=== PATIENT | male | born 1980 | race African-American/Black ===

== ENCOUNTER 2020-11-06 21:13 | Emergency (ER) | payer SELFPAY ==
[~2020-11-06] VITALS: Ht 175 cm; Wt 86.0 kg
[~2020-11-06 21:13] MED LIST: ANTIBOTIC
[2020-11-06] MEDS ORDERED: TETANUS,DIPTH,PERTUSS P/F (BOOSTRIX) 0.5 ML VIAL IM ONE (21:30)
--- NOTE | 2020-11-06 21:31 | ED Upper Extremity ---
General Chief Complaint: Laceration Stated Complaint: L HAND 2ND FINGER LACERATION History of Present Illness Date Seen by Provider: Nov 06, 2020 Time Seen by Provider: 21:15 Initial Comments 40-year-old -[place] male attempted to grab a knife and grabbed a sharp and instead of the handle causing a laceration to his left second finger. He is unsure of the last time he received a tetanus vaccine. He denies any other complaints of injuries. Onset: just prior to arrival Pain/Injury Location: left 2nd finger Method of Injury: incised Allergies and Home Medications Allergies Coded Allergies: NKANo Known Allergies (Unverified Allergy, Mild, 11/23/09) Home Medications Cephalexin 500 Mg Tablet, 500 MG PO TID Prescribed by: GENNARO VILLALOBOS on 11/06/202228 Patient Home Medication List Home Medication List Reviewed: Yes Review of Systems Constitutional: no symptoms reported, see HPI Skin: see HPI, other (Laceration left second finger.) All Other Systems Reviewed Negative Unless Noted: Yes Past Gpzkjyd-Ypiabf-Naizxm Hx Past Med/Social Hx: Reviewed Nursing Past Med/Soc Hx Past Medical History Reproductive Disorders: No Physical Exam Vital Signs Vital Signs - First Documented 11/06/20 21:35 Temp 36.0 Pulse 96 Resp 16 B/P (MAP) 158/117 (131) O2 Delivery Room Air Capillary Refill : Height, Weight, BMI Height: '" Weight: lbs. oz. kg; BMI Method: General Appearance: WD/WN, no apparent distress Cardiovascular: normal peripheral pulses, regular rate, rhythm Respiratory: chest non-tender, lungs clear, normal breath sounds Hand: normal ROM, Left, laceration (Left second finger), soft tissue tenderness Neurologic/Psychiatric: no motor/sensory deficits, alert, normal mood/affect, oriented x 3 Skin: normal color, warm/dry Procedures/Interventions Wound Location: Upper Extremities (Left second finger) Wound's Depth, Shape: into muscle Wound Explored: clean Irrigated w/ Saline (ccs): 500 Betadine Prep?: Yes Anesthesia: 1% Lidocaine Volume Anesthetic (ccs): 6 Suture: Ethlion Suture Size: 5-0 Number of Sutures: 4 Sterile Dressing Applied?: Yes (.) Progress . Wound cleaned with sterile saline and Betadine to the skin. Lidocaine 6 mL is used for local anesthetic. To areas of bleeding were addressed first with a silver nitrate stick without control then with electrocautery. Wound was well approximated with 4 simple sutures. No further bleeding was noted. The patient was monitored for approximately 15 minutes to assure no further bleeding would occur. Dressing had a trace amount of blood. New sterile dressing was applied. The patient tolerated procedure well. Progress/Results/Core Measures Results/Orders My Orders Orders - GENNARO VILLALOBOS Dipht,Pertuss(Acell),Tet Adult (Boostrix (11/06/20 21:30) Cephalexin Capsule (Keflex Capsule) (11/06/20 22:30) Cephalexin Capsule (Keflex Capsule) (11/06/20 22:33) Medications Given in ED Current Medications Medications Dose Ordered Sig/Ana Route Start Time Stop Time Status Last Admin Dose Admin Cephalexin HCl 500 mg ONCE ONCE PO 11/06/20 22:30 11/06/20 22:41 DC 11/06/20 22:39 500 MG Diphtheria/ Tetanus/Acell Pertussis 0.5 ml ONCE ONCE IM 11/06/20 21:30 11/06/20 21:31 DC 11/06/20 21:33 0.5 ML Vital Signs/I&O 11/06/20 21:35 Temp 36.0 Pulse 96 Resp 16 B/P (MAP) 158/117 (131) O2 Delivery Room Air Departure Impression Primary Impression: Laceration of left index finger Qualified Codes: S61.211A - Laceration without foreign body of left index finger without damage to nail, initial encounter Disposition: 01 HOME, SELF-CARE Condition: Improved Departure-Patient Inst. Decision time for Depature: 22:10 Referrals: CATHY AGUAYO MD (PCP) Primary Care Physician [facility] [place] Instructions: Laceration Repair With Stitches (DC) Add. Discharge Instructions: Clean and dry for the next 24 hours, then you may shower and clean it with peroxide after. Keep covered with a Band-Aid or dressing when away from home. You may leave it open to air while at home. Take antibiotics as prescribed. You may alternate between Tylenol 650 mg and ibuprofen 600 mg every 4 hours for pain. Watch for signs of infection: Redness, warmth, discolored drainage, or foul- smelling drainage. Return to the emergency department or your primary care provider in 10 to 14 days for suture removal. If the wound begins to bleed apply a compressive type dressing, use an ice pack and elevate it higher than your heart. If it continues bleeding be on 10 to 15 minutes return to the emergency department. Return to the emergency department for any new, urgent healthcare needs. All discharge instructions reviewed with patient and/or family. Voiced understanding. Scripts Cephalexin (Cephalexin) 500 Mg Tablet 500 MG PO TID, #15 TAB 0 Refills Prov: GENNARO VILLALOBOS 11/06/20 GENNARO VILLALOBOS Nov 06, 2020 21:31
[2020-11-06] MEDS ORDERED: CEPH500T PO (22:29)
[2020-11-06] MEDS ORDERED: CEPHALEXIN 250 MG (KEFLEX) CAP PO ONE ×2 (22:30→22:33)
[2020-11-06 22:43] VITALS: BP 149/98
== END 2020-11-06 22:43 | disposition home or self-care (01) ==
LOC: EDUNIT# 21:13 → ER 21:15
DX: S61.211A Laceration without foreign body of left index finger without damage to nail, initial encounter (principal); Z23 Encounter for immunization; W26.0XXA Contact with knife, initial encounter
CPT/HCPCS: 12001; 90715

== ENCOUNTER 2021-10-01 11:28 | Emergency (ER) | payer SELFPAY ==
[~2021-10-01] VITALS: Ht 175.2 cm; Wt 90.9 kg
[~2021-10-01 11:28] MED LIST changes: +CEPH500T PO
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
[2021-10-01] MEDS ORDERED: KETOROLAC 60 MG/2 ML VIAL IM ONE (14:00)
[2021-10-01] MEDS ORDERED: ORPHENADRINE 60 MG/2 ML (NORFLEX) AMP (ED ONLY) IM ONE (14:00)
--- NOTE | 2021-10-01 14:09 | Diagnostic Imaging Report ---
PROCEDURE: CT lumbar spine without contrast. TECHNIQUE: Multiple contiguous axial images were obtained through the lumbar spine without the use of intravenous contrast. Sagittal and coronal reformations were then performed. Auto Exposure Controls were utilized during the CT exam to meet ALARA standards for radiation dose reduction. INDICATION: Back pain. Fall. COMPARISON: None. FINDINGS: Normal alignment. Vertebral body heights are preserved. No fractures. Visualized pelvis is intact. No substantial degenerative endplate changes. [id number] facet arthropathy bilaterally at L5-S1. No high-grade spinal canal stenosis is evident on soft tissue windows. There is at least moderate bilateral neural foraminal narrowing at L5-S1 and on the left at L4-L5. Visualized paravertebral soft tissues are unremarkable. IMPRESSION: 1. No acute CT findings in the lumbar spine. 2. Spondylotic changes likely result in moderate bilateral neural foraminal narrowing at L5-S1 and on the left at L4-L5. No high-grade spinal canal stenosis is evident by noncontrast CT. Dictated by: Dictated on workstation # [id number]
[2021-10-01] MEDS ORDERED: ACHD5005 PO (14:29)
[2021-10-01] MEDS ORDERED: METH4TAB11 PO (14:29)
[2021-10-01] MEDS ORDERED: NAPR500T8 PO (14:29)
[2021-10-01 14:32] VITALS: BP 165/115
== END 2021-10-01 14:32 | disposition home or self-care (01) ==
LOC: EDUNIT# 11:28 → ER 11:30
DX: M54.50 Low back pain, unspecified (principal)
CPT/HCPCS: 72131

== ENCOUNTER 2021-10-22 11:37 | Emergency (ER) | payer SELFPAY ==
[~2021-10-22] VITALS: Ht 177.8 cm; Wt 90.7 kg
[~2021-10-22 11:37] MED LIST changes: +ACHD5005 PO; +METH4TAB11 PO; +NAPR500T8 PO
[2021-10-22] MEDS ORDERED: cefTRIAXone 1 GM PRE-MIX 50 ML IV ONE (12:00)
[2021-10-22] MEDS ORDERED: KETOROLAC 30 MG/ML VIAL IVP ONE (12:00)
--- NOTE | 2021-10-22 12:02 | ED General ---
General Stated Complaint: THROAT SWELLING - COUGH - CHILLS - CONGESTION Source of Information: Patient Exam Limitations: No Limitations (TOÑO CABRERA APRN) History of Present Illness Date Seen by Provider: Oct 22, 2021 Time Seen by Provider: 12:00 Initial Comments ER with a 1 week history of swelling to his throat. Started the left side of hi s throat and now is the right side of his throat. He states that he has had some chills. He has a cough only in an attempt to clear the sensation out of his throat. He has difficulty opening his mouth because of pain and difficulty chewing because of pain. Seems to be underneath the right side of his tongue. Swallowing is painful. Timing/Duration: 1 Week Severity: Moderate (TOÑO CABRERA APRN) Allergies and Home Medications Allergies Coded Allergies: NKANo Known Allergies (Unverified Allergy, Mild, 11/23/09) Patient Home Medication List Home Medication List Reviewed: Yes (TOÑO CABRERA APRN) Cephalexin (Cephalexin) 500 Mg Tablet, 500 MG PO TID Prescribed by: GENNARO VILLALOBOS on 11/06/202228 Clindamycin HCl (Clindamycin HCl) 300 Mg Capsule, 300 MG PO QID Prescribed by: TOÑO CABRERA on 10/22/21 1346 Hydrocodone/Acetaminophen (Hydrocodone-Acetamin 5-325 mg) 1 Each Tablet, 1 TAB PO Q4H PRN for PAIN-MODERATE (5-7) Prescribed by: JOSH MOONEY on 10/01/21 1429 Hydrocodone/Acetaminophen (Hydrocodone-Acetamin 5-325 mg) 1 Each Tablet, 1 TAB PO Q4H PRN for PAIN-MODERATE (5-7) Prescribed by: TOÑO CABRERA on 10/22/21 1346 Methylprednisolone (Methylprednisolone Dose Pack) 4 Mg Tablet, 4 MG PO UD Prescribed by: JOSH MOONEY on 10/01/21 142 Naproxen (Naproxen) 500 Mg Tablet.dr, 500 MG PO BID Prescribed by: JOSH MOONEY on 10/01/21 142 Prednisone (Prednisone) 20 Mg Tab, 60 MG PO DAILY Prescribed by: TOÑO CABRERA on 10/22/21 1346 [Antibotic] , (Reported) Entered as Reported by: JERMAINE GAMINO on 11/30/09 1106 Review of Systems Review of Systems Constitutional: see HPI EENTM: see HPI, mouth pain, mouth swelling, throat pain, throat swelling Respiratory: no symptoms reported Cardiovascular: no symptoms reported Genitourinary: no symptoms reported Musculoskeletal: no symptoms reported Skin: no symptoms reported Psychiatric/Neurological: No Symptoms Reported Hematologic/Lymphatic: No Symptoms Reported Immunological/Allergic: no symptoms reported (TOÑO CABRERA APRN) Past Swmydra-Fxjwhi-Jzpfef Hx Past Medical History Surgeries: No Respiratory: No Cardiac: No Neurological: No Reproductive Disorders: No Gastrointestinal: No Musculoskeletal: No Endocrine: No HEENT: No Cancer: No Psychosocial: No Integumentary: No Blood Disorders: No (TOÑO CABRERA APRN) Physical Exam Vital Signs Vital Signs - First Documented 10/22/21 11:50 Temp 36.4 Pulse 104 Resp 20 B/P (MAP) 154/102 (119) Pulse Ox 98 O2 Delivery Room Air (HEATHER BREWER MD) Vital Signs Capillary Refill : (TOÑO CABRERA APRN) Height, Weight, BMI Height: '" Weight: lbs. oz. kg; 29.00 BMI Method: General Appearance: No Apparent Distress, WD/WN Eyes: Bilateral Eye Normal Inspection, Bilateral Eye PERRL, Bilateral Eye EOMI HEENT: PERRL/EOMI, TMs Normal, Other (Mild trismus) Neck: Full Range of Motion, Normal Inspection, Other (There is some right and left-sided palpable tender submandibular lymphadenopathy) Respiratory: No Accessory Muscle Use, No Respiratory Distress Cardiovascular: Regular Rate, Rhythm Gastrointestinal: Normal Bowel Sounds, Non Tender, Soft Extremity: Normal Capillary Refill, Normal Inspection Neurologic/Psychiatric: Alert, Oriented x3 Skin: Normal Color, Warm/Dry (TOÑO CABRERA APRN) Procedures/Interventions Suture Size: 5-0 (TOÑO CABRERA APRN) Progress/Results/Core Measures Suspected Sepsis SIRS Temperature: Pulse: Respiratory Rate: Laboratory Tests 10/22/21 12:03: White Blood Count 8.0 Blood Pressure / Mean: Laboratory Tests 10/22/21 12:03: Creatinine 1.01, Platelet Count 299 (TOÑO CABRERA APRN) Results/Orders Lab Results Laboratory Tests Test 10/22/21 12:03 Range/Units White Blood Count 8.0 4.3-11.0 10^3/uL Red Blood Count 5.18 4.30-5.52 10^6/uL Hemoglobin 15.5 13.3-17.7 g/dL Hematocrit 45 40-54 % Mean Corpuscular Volume 88 80-99 fL Mean Corpuscular Hemoglobin 30 25-34 pg Mean Corpuscular Hemoglobin Concent 34 32-36 g/dL Red Cell Distribution Width 12.4 10.0-14.5 % Platelet Count 299 130-400 10^3/uL Mean Platelet Volume 9.2 9.0-12.2 fL Immature Granulocyte % (Auto) 0 % Neutrophils (%) (Auto) 67 42-75 % Lymphocytes (%) (Auto) 20 12-44 % Monocytes (%) (Auto) 11 0-12 % Eosinophils (%) (Auto) 1 0-10 % Basophils (%) (Auto) 1 0-10 % Neutrophils # (Auto) 5.4 1.8-7.8 10^3/uL Lymphocytes # (Auto) 1.6 1.0-4.0 10^3/uL Monocytes # (Auto) 0.9 0.0-1.0 10^3/uL Eosinophils # (Auto) 0.1 0.0-0.3 10^3/uL Basophils # (Auto) 0.0 0.0-0.1 10^3/uL Immature Granulocyte # (Auto) 0.0 0.0-0.1 10^3/uL Sodium Level 137 135-145 MMOL/L Potassium Level 4.0 3.6-5.0 MMOL/L Chloride Level 103 98-107 MMOL/L Carbon Dioxide Level 24 21-32 MMOL/L Anion Gap 10 5-14 MMOL/L Blood Urea Nitrogen 7 7-18 MG/DL Creatinine 1.01 0.60-1.30 MG/DL Estimat Glomerular Filtration Rate 95 BUN/Creatinine Ratio 7 Glucose Level 93 70-105 MG/DL Calcium Level 9.8 8.5-10.1 MG/DL C-Reactive Protein High Sensitivity 6.02 H 0.00-0.50 MG/DL (HEATHER BREWER MD) Micro Results Microbiology 10/22/21 Gram Stain - Final, Resulted 10/22/21 Anaerobic Culture - Preliminary, Resulted Prevotella melaninogenica 10/22/21 Wound Culture - Preliminary, Resulted Usual upper respiratory travis Streptococcus pyogenes Grp A (HEATHER BREWER MD) Vital Signs/I&O 10/22/21 10/22/21 11:50 14:41 Temp 36.4 Pulse 104 89 Resp 20 20 B/P (MAP) 154/102 (119) 143/92 Pulse Ox 98 98 O2 Delivery Room Air Room Air (HEATHER BREWER MD) Vital Signs/I&O Capillary Refill : (TOÑO CABRERA APRN) Departure Communication (Admissions) 1430-right tonsil was anesthetized with topical Hurricaine spray. In a MAC 3 laryngoscope with lighted blade was used to displace the tongue laterally to the left. Overlying skin was anesthetized with 1 mL of 2% lidocaine with epinephrine. This was using a 27-gauge needle. Then used a larger 18-gauge needle with the plastic needle cover still in place but cut to leave 1.5 cm of the actual needle exposed. This was then inserted parallel to the tongue and a flat horizontal orientation and not oriented laterally. Was able to aspirate 2.5 mL of purulent material with resultant improvement in his symptoms. (TOÑO CABRERA APRN) Impression Primary Impression: Tonsillar abscess Disposition: HOME, SELF-CARE Condition: Stable Departure-Patient Inst. Decision time for Depature: 13:44 (TOÑO CABRERA APRN) Referrals: ASYA CRUZ MD NO,LOCAL PHYSICIAN (PCP) Primary Care Physician Patient Instructions: Peritonsillar Abscess, Adult Add. Discharge Instructions: 1. Return tomorrow or Wednesday for recheck. Call Dr. Cruz today to make an appointment to be seen for follow-up sometime next week. Take the antibiotic steroid and pain medication as directed. Scripts Hydrocodone/Acetaminophen (Hydrocodone-Acetamin 5-325 mg) 1 Each Tablet 1 TAB PO Q4H PRN for PAIN-MODERATE (5-7), #14 TAB Prov: TOÑO CABRERA APRN 10/22/21 Prednisone (Prednisone) 20 Mg Tab 60 MG PO DAILY, #9 TAB 0 Refills Prov: TOÑO CABRERA APRN 10/22/21 Clindamycin HCl (Clindamycin HCl) 300 Mg Capsule 300 MG PO QID, #28 CAP Prov: TOÑO CABRERA APRN 10/22/21 ATTENDING PHYSICIAN NOTE: I was physically present as attending physician in the emergency department during the care of this patient, but I was not directly involved in the decision making or delivery of care for this patient. (HEATHER BREWER MD) TOÑO CABRERA APRN Oct 22, 2021 12:02 HEATHER BREWER MD Oct 24, 2021 19:41
[2021-10-22 12:09] LABS: BASOPHILS % (AUTO) 1 % (0-10); EOSINOPHILS # (AUTO) 0.1 10^3/uL (0.0-0.3); EOSINOPHILS % (AUTO) 1 % (0-10); HEMATOCRIT 45 % (40-54); HEMOGLOBIN 15.5 g/dL (13.3-17.7); LYMPHOCYTES # (AUTO) 1.6 10^3/uL (1.0-4.0); LYMPHOCYTES % (AUTO) 20 % (12-44); MEAN CORPUSCULAR HEMOGLOBIN 30 pg (25-34); MEAN CORPUSCULAR HGB CONC 34 g/dL (32-36); MEAN CORPUSCULAR VOLUME 88 fL (80-99); MEAN PLATELET VOLUME 9.2 fL (9.0-12.2); MONOCYTES # (AUTO) 0.9 10^3/uL (0.0-1.0); MONOCYTES % (AUTO) 11 % (0-12); NEUTROPHILS # (AUTO) 5.4 10^3/uL (1.8-7.8); NEUTROPHILS % (AUTO) 67 % (42-75); PLATELET COUNT 299 10^3/uL (130-400)
[2021-10-22] MEDS ORDERED: NS 100 ML (IVPB) BAG IV ONE (12:15)
[2021-10-22] MEDS ORDERED: IOHEXOL 350 MG/ML 100 ML (OMNIPAQUE 350) VIAL IV ONE (12:15)
[2021-10-22] MEDS ORDERED: HOLD METFORMIN - RECEIVED CONTRAST 20 ML VIAL IV SCH (12:15)
[2021-10-22 12:20] LABS: CALCIUM 9.8 MG/DL (8.5-10.1)
[2021-10-22 12:25] LABS: CREATININE SERUM 1.01 MG/DL (0.60-1.30)
[2021-10-22] MEDS ORDERED: HURRICAINE EXT TUBE (BENZOCAINE) XX ONE (13:45)
[2021-10-22] MEDS ORDERED: LIDOCAINE/EPI 1%-1:100,000 (XYLOCAINE) 20ML INJ ONE (13:45)
[2021-10-22] MEDS ORDERED: fentaNYL INJ 100 MCG/2 ML AMP IVP ONE (13:45)
[2021-10-22] MEDS ORDERED: LIDOCAINE/EPI 2% 1:100,00 (XYLOCAINE) 20 ML VIAL INJ ONE (13:45)
[2021-10-22] MEDS ORDERED: PRD20T PO (13:46)
[2021-10-22] MEDS ORDERED: CLIN-144 PO (13:46)
[2021-10-22] MEDS ORDERED: ACHD5005 PO (13:46)
--- NOTE | 2021-10-22 13:54 | Diagnostic Imaging Report ---
PROCEDURE: CT neck soft tissue with contrast. TECHNIQUE: Multiple contiguous axial images were obtained through the neck after the administration of contrast. Auto Exposure Controls were utilized during the CT exam to meet ALARA standards for radiation dose reduction. INDICATION: Sore throat and lump for one week. COMPARISON: No prior studies are available for comparison. FINDINGS: The posterior nasopharynx is unremarkable. There is a fluid collection on the right in the region of the right oropharyngeal mucosa and tonsillar pillar suggestive of an abscess. This measures 2.2 cm AP x 1.9 cm transverse. There is significant swelling and edema of the oropharyngeal mucosa. Epiglottis and larynx are unremarkable. Significant swelling does distort the oropharyngeal airway. No thyroid mass is seen. The submandibular and parotid glands are symmetric bilaterally. Parapharyngeal fat planes are preserved. There appear to be some enlarged level II lymph nodes on the right, likely reactive lymphadenopathy. Borderline lymph nodes on the left are noted. No posterior cervical chain or supraclavicular lymphadenopathy is seen. IMPRESSION: There is some marked swelling of the oropharyngeal mucosa with a right-sided fluid collection suggestive of tonsillar abscess. This swelling does distort the airway. There is reactive lymphadenopathy present in the soft tissues of the neck as well. Dictated by: Dictated on workstation # [id number]
[2021-10-22 14:41] VITALS: BP 143/92
== END 2021-10-22 14:41 | disposition home or self-care (01) ==
LOC: EDUNIT# 11:37 → ER 11:38
DX: J36 Peritonsillar abscess (principal)
CPT/HCPCS: 36415; 70491; 80048; 85025; 86141; 87070; 87075; 87076; 87077; 87205